=== PATIENT | female | born 1955 | race Caucasian/White ===

== ENCOUNTER 2017-10-20 12:41 | Outpatient (CLI) | payer BC, OTHER ==
--- NOTE | 2017-10-20 14:34 | MMO ---
BILATERAL SCREENING MAMMOGRAM: HISTORY: A 62-year-old female for screening mammography. COMPARISON: 08/27/16, 05/20/15, 01/10/13. FINDINGS: Bilateral MLO and CC views of the breasts show scattered fibroglandular breast tissue. Benign-appear ing calcifications are seen in both breasts. There is no evidence of suspicious mass, suspicious clu stered microcalcifications, or area of architectural distortion. Interpretation of this mammogram was performed with the assistance of computer-aided detection. IMPRESSION: BI-RADS category 2 - benign findings. Annual screening mammography is recommended. BIRADS 2: Benign Finding(s) Routine annual screening mammography (for women over age 40) POS: [facility]
== END 2017-10-20 12:42 | disposition home or self-care (01) ==
LOC: SCSMAMMO 12:41
PROVIDERS: ATTEND Family Medicine
DX: Z12.31 Encounter for screening mammogram for malignant neoplasm of breast (principal); Z85.3 Personal history of malignant neoplasm of breast
CPT/HCPCS: 77067; G0202

== ENCOUNTER 2018-10-20 13:43 | Outpatient (CLI) | payer BC, OTHER | END 2018-10-20 13:44 | disposition home or self-care (01) | LOC: BICMAMMO 13:43 | PROVIDERS: ATTEND Family Medicine | DX: Z12.31 Encounter for screening mammogram for malignant neoplasm of breast (principal); Z80.3 Family history of malignant neoplasm of breast; Z85.3 Personal history of malignant neoplasm of breast; N64.89 Other specified disorders of breast | CPT/HCPCS: 77063; 77067 ==

== ENCOUNTER 2018-10-25 12:29 | Outpatient (CLI) | payer BC, OTHER | END 2018-10-25 12:30 | disposition home or self-care (01) | LOC: BICMAMMO 12:29 | PROVIDERS: ATTEND Family Medicine | DX: R92.2 Inconclusive mammogram (principal); Z85.3 Personal history of malignant neoplasm of breast; Z80.3 Family history of malignant neoplasm of breast | CPT/HCPCS: G0279 ==

== ENCOUNTER 2021-03-25 21:43 | Emergency (ER) | payer BC | END 2021-03-25 23:47 | disposition home or self-care (01) | LOC: ERS 21:43 | DX: M79.662 Pain in left lower leg (principal); N39.0 Urinary tract infection, site not specified; I25.10 Atherosclerotic heart disease of native coronary artery without angina pectoris; E11.9 Type 2 diabetes mellitus without complications; E03.9 Hypothyroidism, unspecified; I10 Essential (primary) hypertension; E66.9 Obesity, unspecified; Z79.4 Long term (current) use of insulin ==

== ENCOUNTER 2021-09-18 12:30 | Outpatient (CLI) | payer BC | END 2021-09-18 12:31 | disposition home or self-care (01) | LOC: BICMAMMO 12:30 | PROVIDERS: ATTEND Family Medicine | DX: Z12.31 Encounter for screening mammogram for malignant neoplasm of breast (principal); Z80.3 Family history of malignant neoplasm of breast; Z85.3 Personal history of malignant neoplasm of breast; Z98.890 Other specified postprocedural states | CPT/HCPCS: 77063; 77067 ==

== ENCOUNTER 2022-10-08 12:16 | Outpatient (CLI) | payer BC, MEDICARE | END 2022-10-08 12:17 | disposition home or self-care (01) | LOC: BICMAMMO 12:16 | PROVIDERS: ATTEND Family Medicine | DX: Z12.31 Encounter for screening mammogram for malignant neoplasm of breast (principal); Z80.3 Family history of malignant neoplasm of breast; Z85.3 Personal history of malignant neoplasm of breast; Z98.890 Other specified postprocedural states | CPT/HCPCS: 77063; 77067 ==

== ENCOUNTER 2024-05-07 14:49 | Outpatient (CLI) | payer MEDICARE, OTHER | END 2024-05-07 14:50 | disposition home or self-care (01) | LOC: BICMAMMO 14:49 | PROVIDERS: ATTEND Registered Nurse | DX: Z12.31 Encounter for screening mammogram for malignant neoplasm of breast (principal); Z80.3 Family history of malignant neoplasm of breast; Z85.3 Personal history of malignant neoplasm of breast; Z98.890 Other specified postprocedural states | CPT/HCPCS: 77063; 77067 ==

== ENCOUNTER 2024-09-25 18:03 | Inpatient (IN) | payer MEDICARE, OTHER ==
[2024-09-25] MEDS ORDERED: Insulin Lispro 100 UNIT/ML 10 ML VIAL SC PRN ×2 (18:57)
[2024-09-25] MEDS ORDERED: Glucagon 1 MG/ML KIT IM PRN (18:57)
[2024-09-25] MEDS ORDERED: Dextrose 5% in Water 1,000 ML IV PRN (18:57)
[2024-09-25] MEDS ORDERED: Ondansetron PF 4 MG/2 ML Vial IVP PRN (18:57)
[2024-09-25] MEDS ORDERED: Ondansetron ODT 4 MG TAB PO PRN (18:57)
[2024-09-25] MEDS ORDERED: Dextrose 50% Abboject 50 ML SYRINGE SLOW IVP PRN (18:57)
[2024-09-25 19:28] LABS: #Basophils 0.05 10x3/uL (0.0-0.2); %Basophils 0.5 % (0.0-1.0); %Monocytes 8.7 % (0.0-10.0); %Neutrophils 59.5 % (42.0-75.0); Hematocrit 43.4 % (36.0-47.0); Hemoglobin 14.4 g/dL (12.0-16.0); Mean Corpuscular HGB CONC 33.2 g/dL (32.0-36.0); Mean Corpuscular Hemoglobin 29.5 pg (27.0-31.0); Mean Corpuscular Volume 88.9 fL (78.0-98.0); Mean Platelet Volume 11.8 fL (7.4-10.4); Platelet Count 205 10x3/uL (130-400); RBC Distribution Width 12.3 % (11.5-14.5); Red Blood Cell (RBC) Count 4.88 mill/uL (4.20-5.40)
[2024-09-25 19:45] LABS: ALT (SGPT) 12 U/L (8-55); AST (SGOT) 12 U/L (5-34); Albumin 3.5 g/dL (3.4-4.8); Alkaline Phosphatase 84 U/L (40-110); Anion Gap 15 mmol/L (10-20); BUN (Urea Nitrogen) 12 mg/dL (9.8-20.1); Bilirubin, Total 1.1 mg/dL (0.2-1.2); Calc. Creatinine Clearance 0 mL/min (70-130); Calcium 8.9 mg/dL (7.8-10.44); Carbon Dioxide 24 mmol/L (23-31); Chloride 106 mmol/L (98-107); Estimated GFR 63; Globulin 3.7 g/dL (2.4-3.5); Glucose 180 mg/dL (80-115); Magnesium 1.9 mg/dL (1.6-2.6); Potassium 4.5 mmol/L (3.5-5.1); Protein, Total 7.2 g/dL (5.8-8.1); Sodium 140 mmol/L (136-145)
[2024-09-25] MEDS: Gabapentin 300 MG CAP PO SCH (20:33)
[2024-09-25] MEDS: Acyclovir 800 mg Tablet PO SCH (21:12)
[2024-09-25 21:15] VITALS: BMI 42.5
[2024-09-25] MEDS: Acetaminophen 325 MG TAB PO PRN (23:56)
[2024-09-26] MEDS: Levothyroxine Sodium 50 MCG TAB PO SCH (05:10)
[2024-09-26] MEDS: Insulin Lispro 100 UNIT/ML 10 ML VIAL SC SCH (08:33)
[2024-09-26] MEDS: Aspirin 325 MG TAB PO SCH (08:33)
[2024-09-26] MEDS: Enoxaparin 40 MG (0.4 mL) SYRINGE SC SCH (08:34)
[2024-09-26] MEDS: Atorvastatin Calcium 40 MG TAB PO SCH (08:34)
[2024-09-26] MEDS: Empagliflozin 10 MG TAB PO SCH (08:34)
[2024-09-26] MEDS: Pantoprazole DR 40 MG TAB PO SCH (08:35)
[2024-09-26] MEDS: FLUoxetine HCl 20 MG CAP PO SCH (08:35)
[2024-09-26] MEDS: Losartan 25 MG TAB PO SCH (08:35)
[2024-09-26] MEDS ORDERED: HumaLOG 300 UNITS/3 ML VIAL SC PRN (09:51)
[2024-09-26] MEDS ORDERED: Insulin Lispro 100 UNIT/ML 10 ML VIAL SC PRN (10:00)
[2024-09-26] MEDS: cefTRIAXone\\ROCEPHIN 1 GM in Sodium Chloride 0.9% 100 ML IVPB SCH (11:19)
[2024-09-26] MEDS ORDERED: Artificial Tear Ophth Sol 15 ML BOT EA EYE PRN (12:37)
[2024-09-26] MEDS ORDERED: Gabapentin 300 MG CAP PO SCH (15:00)
[2024-09-26] MEDS: Gabapentin 400 MG CAP PO SCH (16:03)
[2024-09-26] MEDS: Senokot S 8.6-50 MG TAB PO SCH (20:17)
[2024-09-26] MEDS: Latanoprost 0.005% Ophth Soln 2.5 ml Bottle L EYE SCH (20:19)
[2024-09-26] MEDS: Insulin Glargine 30 UNITS/0.3 ML VIAL SC SCH (20:28)
[2024-09-26] MEDS: Morphine 2 MG/ML VIAL SLOW IVP SCH (22:00)
[2024-09-26] MEDS: Labetalol HCl 100 MG/20 ML VIAL SLOW IVP SCH (23:05)
[2024-09-27] MEDS: Morphine 2 MG/ML VIAL SLOW IVP PRN (02:04)
[2024-09-27 05:36] LABS: #Basophils 0.04 10x3/uL (0.0-0.2); %Basophils 0.5 % (0.0-1.0); %Eosinophils 3.4 % (0.0-10.0); %Lymphocytes 37.3 % (21.0-51.0); %Monocytes 9.8 % (0.0-10.0); %Neutrophils 48.9 % (42.0-75.0); Hematocrit 39.6 % (36.0-47.0); Hemoglobin 12.9 g/dL (12.0-16.0); Mean Corpuscular HGB CONC 32.6 g/dL (32.0-36.0); Mean Corpuscular Hemoglobin 28.9 pg (27.0-31.0); Mean Corpuscular Volume 88.8 fL (78.0-98.0); Mean Platelet Volume 12.1 fL (7.4-10.4); Platelet Count 166 10x3/uL (130-400); RBC Distribution Width 12.3 % (11.5-14.5); Red Blood Cell (RBC) Count 4.46 mill/uL (4.20-5.40)
[2024-09-27 06:06] LABS: ALT (SGPT) 14 U/L (8-55); AST (SGOT) 18 U/L (5-34); Albumin 3.1 g/dL (3.4-4.8); Alkaline Phosphatase 70 U/L (40-110); Anion Gap 12 mmol/L (10-20); BUN (Urea Nitrogen) 16 mg/dL (9.8-20.1); Bilirubin, Total 0.5 mg/dL (0.2-1.2); Calc. Creatinine Clearance 122 mL/min (70-130); Calcium 8.7 mg/dL (7.8-10.44); Carbon Dioxide 24 mmol/L (23-31); Chloride 105 mmol/L (98-107); Estimated GFR 67; Globulin 3.4 g/dL (2.4-3.5); Glucose 144 mg/dL (80-115); Potassium 4.1 mmol/L (3.5-5.1); Protein, Total 6.5 g/dL (5.8-8.1); Sodium 137 mmol/L (136-145)
[2024-09-27 16:08] VITALS: BP 187/103; TEMP 97.5
== END 2024-09-27 18:04 | disposition home or self-care (01) | DRG 866 ==
LOC: OBS 18:03 → INTOOBSV 18:03 → OBSVTOIN 09-27 11:40
PROVIDERS: ADMIT Internal Medicine; ATTEND Internal Medicine
DX: B02.8 Zoster with other complications (principal); N39.0 Urinary tract infection, site not specified; Z68.41 Body mass index [BMI] 40.0-44.9, adult; E78.5 Hyperlipidemia, unspecified; F41.9 Anxiety disorder, unspecified; I25.10 Atherosclerotic heart disease of native coronary artery without angina pectoris; E11.22 Type 2 diabetes mellitus with diabetic chronic kidney disease; I12.9 Hypertensive chronic kidney disease with stage 1 through stage 4 chronic kidney disease, or unspecified chronic kidney disease; D72.829 Elevated white blood cell count, unspecified; N18.2 Chronic kidney disease, stage 2 (mild); Z66 Do not resuscitate; E89.0 Postprocedural hypothyroidism; E66.01 Morbid (severe) obesity due to excess calories; Z88.0 Allergy status to penicillin; Z88.8 Allergy status to other drugs, medicaments and biological substances; Z90.49 Acquired absence of other specified parts of digestive tract; Z90.710 Acquired absence of both cervix and uterus
CPT/HCPCS: 36415; 36416; 70450; 80053; 83735; 83880; 85025; J0696; J1650; J1815; J2272

== ENCOUNTER 2025-09-24 09:01 | Outpatient (CLI) | payer MEDICARE, OTHER | END 2025-09-24 09:02 | disposition home or self-care (01) | LOC: ULT 09:01 | PROVIDERS: ATTEND Internal Medicine Nephrology | DX: I12.9 Hypertensive chronic kidney disease with stage 1 through stage 4 chronic kidney disease, or unspecified chronic kidney disease (principal); N18.30 Chronic kidney disease, stage 3 unspecified | CPT/HCPCS: 76770; 93975 ==

== ENCOUNTER 2025-10-02 12:17 | Outpatient (CLI) | payer MEDICARE, OTHER | END 2025-10-02 12:18 | disposition home or self-care (01) | LOC: CT 12:17 | PROVIDERS: ATTEND Internal Medicine Nephrology | DX: N18.30 Chronic kidney disease, stage 3 unspecified (principal) | CPT/HCPCS: 74176 ==